=== PATIENT | female | born 2000 | race Two or more races ===

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

== ENCOUNTER 2024-11-01 11:12 | Emergency (ER) | payer MEDICAID, OTHER ==
[~2024-11-01] VITALS: Ht 157.5 cm; Wt 45.5 kg
[~2024-11-01 11:12] MED LIST changes: -ALBU8.5H8 IH; +SERT-439 PO
[2024-11-01 11:34] VITALS: TEMP 97.7
[2024-11-01] MEDS: ONDANSETRON HCL 4 MG/2 ML VIAL IVP ONE (12:02)
[2024-11-01] MEDS: SODIUM CHLORIDE 0.9% 1,000 ML IV ONE (12:02)
[2024-11-01 12:11] LABS: BASOPHILS % (AUTO) 0.8 % (0.0-2.0); EOSINOPHILS % (AUTO) 0.1 % (1.0-6.0); HEMATOCRIT 38.9 % (36-46); HEMOGLOBIN 12.9 g/dL (12.0-16.0); LYMPHOCYTES # (AUTO) 1.8 K/uL (1.0-4.8); LYMPHOCYTES % (AUTO) 29.6 % (22.0-44.0); MEAN CORPUSCULAR HEMOGLOBIN 30.9 pg (26.0-34.0); MEAN CORPUSCULAR HGB CONC 33.3 G/dL (31.0-37.0); MEAN CORPUSCULAR VOLUME 93 fL (80-100); MONOCYTES # (AUTO) 0.3 K/uL (0.1-1.0); MONOCYTES % (AUTO) 4.5 % (2.0-9.0); PLATELET COUNT (AUTO) 213 K/uL (150-450); RED BLOOD CELL COUNT(AUTO) 4.19 MIL/uL (4.00-5.20); RED CELL DISTRIBUTION WIDTH 14.9 % (11.5-14.5); WHITE BLOOD COUNT (AUTO) 6.2 K/uL (4.5-11.0)
[2024-11-01 12:20] LABS: ANION GAP 13 mmol/L (8-16); CALCIUM, TOTAL 8.5 mg/dL (8.8-10.5); CARBON DIOXIDE 22 mmol/L (22-29); CHLORIDE 105 mmol/L (98-107); CREATININE 0.82 mg/dL (0.60-1.30); GLOMERULAR FILTR. RATE CALC > 60 mL/min (>60); GLUCOSE,RANDOM 100 mg/dL (70-110); POTASSIUM 3.2 mmol/L (3.5-5.1); SODIUM SERUM 140 mmol/L (136-145); UREA NITROGEN, BLOOD 8 mg/dL (7-18)
[2024-11-01 12:26] LABS: ALCOHOL, BLOOD (SERUM) 44 mg/dL (0-10)
[2024-11-01 12:54] LABS: HCG,QUANTITATIVE < 1 mIU/mL (0-6); LIPASE 25 U/L (16-77)
[2024-11-01] MEDS: PROCHLORPERAZINE EDISYLATE 5 MG/ML 2 ML VIAL IVP ONE (13:24)
[2024-11-01 13:25] LABS: APPEARANCE,URINE CLEAR (CLEAR); BILIRUBIN,URINE NEGATIVE (NEGATIVE); COLOR,URINE COLORLESS (YELLOW); GLUCOSE, URINE (UA) NEGATIVE (NEGATIVE); KETONES,URINE TRACE mg/dL (NEGATIVE); LEUKOCYTE ESTERASE ,URINE NEGATIVE (NEGATIVE); NITRATE,URINE NEGATIVE (NEGATIVE); OCCULT BLOOD,URINE NEGATIVE (NEGATIVE); PH,URINE 8.5 (5.0-8.0); PROTEIN,URINE NEGATIVE (NEGATIVE); SPECIFIC GRAVITIY, URINE 1.014 (1.003-1.030); UROBILINOGEN,URINE <=1.0 mg/dL (<=1.0)
[2024-11-01] MEDS: DiphenhydrAMINE HCL 50 MG/ML VIAL IVP ONE (14:06)
[2024-11-01] MEDS: LORazepam 2 MG/ML VIAL IVP ONE (14:07)
[2024-11-01] MEDS ORDERED: ONDA-104 PO (14:26)
[2024-11-01] MEDS: POTASSIUM CHLORIDE 20 MEQ ER TABLET PO ONE (14:38)
[2024-11-01 15:25] VITALS: BP 110/68; PULSE 79; RESP 16; O2SAT 98
== END 2024-11-01 15:58 | disposition home or self-care (01) ==
LOC: EMS 11:17
DX: K52.9 Noninfective gastroenteritis and colitis, unspecified (principal); J45.909 Unspecified asthma, uncomplicated; E87.6 Hypokalemia; Z72.89 Other problems related to lifestyle
CPT/HCPCS: 99284; 96374; 96375; 96361; 80048; 83690; 84702; 85025; 36415; 81003; G0480; J1200; J2060; J2405; J0780; J7030